=== PATIENT | female | born 1975 | race Caucasian/White ===

== ENCOUNTER → 2017-08-29 | Outpatient (CLI) | payer OTHER ==
--- NOTE | 2017-08-30 08:54 | RADIOLOGY IMAGING REPORT ---
FACILITY: [facility] PATIENT NAME: HUMBERTO NEAL : [id number] MR: [id number] V: [id number] EXAM DATE: ORDERING PHYSICIAN: HAIM HENRY TECHNOLOGIST: Rhiannon Hamm PROCEDURE:BILATERAL DIGITAL SCREENING MAMMOGRAM WITH CAD ASSISTED INTERPRETATION & 3D TOMOSYNTHESIS COMPARISON:None. INDICATIONS:baseline FINDINGS: Dense heterogeneous fibroglandular tissue is seen throughout the breasts. There is no evidence of malignant appearing mass, malignant appearing calcifications or other secondary sign of malignancy in either breast. DIAGNOSTIC CATEGORY 2--BENIGN FINDING. RECOMMENDATIONS: ROUTINE MAMMOGRAM AND CLINICAL EVALUATION. IMPRESSION: BIRADS 2: Benign finding No significant abnormality is seen Dictated by: Tosin Rose M.D. on 08/29/2017 at 16:44 Transcribed by: ILIR on 08/30/2017 at 8:38 Approved by: Tosin Rose M.D. on 08/30/2017 at 8:53 [facility]
== END ==
LOC: MAMO 01:03
PROVIDERS: ATTEND Nurse Practitioner Psychiatric/Mental Health
DX: Z12.31 Encounter for screening mammogram for malignant neoplasm of breast (principal)
CPT/HCPCS: 77063; 77067

== ENCOUNTER → 2017-09-13 | Outpatient (CLI) | payer OTHER ==
--- NOTE | 2017-09-13 19:39 | RADIOLOGY IMAGING REPORT ---
FACILITY: [facility] PATIENT NAME: Belkis Vallejo : 1975 MR: [id number] V: [id number] EXAM DATE: ORDERING PHYSICIAN: TOMMY WADSWORTH TECHNOLOGIST: Location: [facility] Patient: Belkis Vallejo : 1975 Visit/Account:[id number] Date of Sevice: 09/13/2017 PELVIC HISTORY: Abnormal CT. Right ovarian cyst. TECHNIQUE: Transvaginal ultrasound pelvis. Transabdominal imaging also obtained COMPARISON: CT abdomen/pelvis 05/24/2017 FINDINGS: Uterus: 8.0 x 4.9 x 6.0 cm. Myometrium: Probable 2.2 x 2.2 x 2.1 cm fundal fibroid.. Endometrium: Unremarkable; double thickness 12 mm. Cervix: Grossly negative. Right ovary: 3.5 x 2.4 x 2.5 cm. No concerning masses. Normal arterial and venous flow. Small amount of adjacent free fluid. Left ovary: 3.5 x 2.4 x 3.2 cm. No concerning masses. Normal arterial and venous flow. Free pelvic fluid: None. Other findings: None significant IMPRESSION: 1. Probable 2.2 cm fundal fibroid. 2. Normal endometrium. 3. Normal ovaries. 4. Small amount of free fluid adjacent to the right ovary, likely physiologic. Report Dictated By: Alex Goodman MD at 09/13/2017 7:30 PM Report E-Signed By: Alex Goodman MD at 09/13/2017 7:35 PM WSN:[id number]
--- NOTE | 2017-09-13 19:42 | RADIOLOGY IMAGING REPORT ---
FACILITY: [facility] PATIENT NAME: Belkis Vallejo : 1975 MR: [id number] V: [id number] EXAM DATE: ORDERING PHYSICIAN: TOMMY WADSWORTH TECHNOLOGIST: Location: [facility] Patient: Belkis Vallejo : 1975 Visit/Account:[id number] Date of Sevice: 09/13/2017 ABDOMEN COMPLETE HISTORY: Evaluate pancreatic cystic lesion on recent CT COMPARISON: CT abdomen/pelvis 05/24/2017. CT chest 09/13/2017 FINDINGS: Gallbladder: Negative Bile ducts: There is no biliary ductal dilation with the CBD measuring 3-4 mm. Liver: Negative. Pancreas: 3.5 x 4.0 x 3.3 cm cystic lesion at the pancreatic tail Spleen: Negative. Kidneys: Negative. Upper abdominal aorta and IVC: Patent. Ascites: None visualized. Other findings: Fluid at the right lung base. IMPRESSION: 1. There is a 3.5 x 4.0 x 3.3 cm cystic lesion at the pancreatic tail. This could represent pseudocys t or cystic neoplasm. Recommend pancreas MRI with and without contrast for further evaluation. 2. Fluid at the right lung base discussed on recent CT chest examination. This could represent unusua l loculated pleural fluid, lymphangioma or pseudocyst. Report Dictated By: Alex Goodman MD at 09/13/2017 7:35 PM Report E-Signed By: Alex Goodman MD at 09/13/2017 7:39 PM WSN:[id number]
== END ==
LOC: US 02:58
PROVIDERS: ATTEND Obstetrics & Gynecology
DX: K86.2 Cyst of pancreas (principal); R91.8 Other nonspecific abnormal finding of lung field
CPT/HCPCS: 76700; 76856

== ENCOUNTER → 2017-09-13 | Outpatient (CLI) | payer OTHER ==
--- NOTE | 2017-09-13 16:45 | RADIOLOGY IMAGING REPORT ---
FACILITY: [facility] PATIENT NAME: Belkis Vallejo : 1975 MR: [id number] V: [id number] EXAM DATE: ORDERING PHYSICIAN: DEREJE CULP TECHNOLOGIST: Location: [facility] Patient: Belkis Vallejo : 1975 Visit/Account:[id number] Date of Sevice: 09/13/2017 CHEST W/O CONTRAST HISTORY: Pleural effusion TECHNIQUE: CT imaging was obtained through the chest without intravenous contrast. One of the [employer] dose optimization techniques was utilized in the performance of this exam: automated exposure co ntrol; adjustment of the mA and/or kv according to patient size; or use of iterative reconstruction t echnique. Specific details can be referenced in the facility's radiology CT exam operational policy. CONTRAST: None COMPARISON: CT abdomen/pelvis 05/24/2017 FINDINGS: CHEST: Lower neck: Negative. Vessels: Negative Heart and pericardium: Negative. Mediastinum/hilum/lymph nodes: Negative. Lungs/pleura: Stable fluid density lesion posteriorly at the right lower lobe which tracks along the diaphragm anteriorly. No consolidation. No concerning pulmonary nodule. No central endobronchial les ion or bronchiectasis. Upper abdomen: Stable cystic lesion with punctate calcifications within the tail the pancreas measuri ng 3.5 x 3.7 cm. Bones/soft tissues: Negative. IMPRESSION: 1. Stable fluid density lesion posteriorly at the right lower lobe which tracks along the anterior di aphragm to the vena cava. Orientation is unusual for loculated pleural fluid. Pseudocyst or lymphangi ebony within the differential. 2. Stable 3.5 x 3.7 cm cystic lesion within the pancreatic tail with small calcifications. Recommend MRI for further evaluation with without contrast (pancreatic mass protocol).. Report Dictated By: Alex Goodman MD at 09/13/2017 4:18 PM Report E-Signed By: Alex Goodman MD at 09/13/2017 4:41 PM WSN:[id number]
== END ==
LOC: CT 02:53
PROVIDERS: ATTEND Internal Medicine
DX: K86.2 Cyst of pancreas (principal); R91.8 Other nonspecific abnormal finding of lung field
CPT/HCPCS: 71250

== ENCOUNTER → 2017-10-23 | Outpatient (CLI) | payer OTHER ==
--- NOTE | 2017-10-24 11:46 | RADIOLOGY IMAGING REPORT ---
FACILITY: [facility] PATIENT NAME: HUMBERTO NEAL : [id number] MR: [id number] V: [id number] EXAM DATE: ORDERING PHYSICIAN: TOMMY WADSWORTH TECHNOLOGIST: Benitez Coates PROCEDURE:US RIGHT BREAST COMPLETE COMPARISON:None. INDICATIONS:new lump felt on breast exam in the 7 o'clock position on the Right breast. FINDINGS: The right breast was imaged in the 5-9 o'clock positions revealing a tiny duct in the 8 o'clock position measuring 2.7 x 2.6 x 1.5mm. No sonographic abnormality identified to account for patient's palpable findings. DIAGNOSTIC CATEGORY 3--PROBABLY BENIGN FINDING. RECOMMENDATIONS: SIX MONTH FOLLOW-UP DIAGNOSTIC MAMMOGRAM: RIGHT BREAST. IMPRESSION: BIRADS 3: Probably benign finding A 6 month follow-up Right mammogram is recommended as discussed in Today's Right mammogram report. Dictated by: Tosin Rose M.D. on 10/23/2017 at 16:00 Transcribed by: ILIR on 10/24/2017 at 8:34 Approved by: Tosin Rose M.D. on 10/24/2017 at 11:46 [facility]
--- NOTE | 2017-10-24 11:47 | RADIOLOGY IMAGING REPORT ---
FACILITY: [facility] [place] PATIENT NAME: HUMBERTO NEAL : [id number] MR: [id number] V: [id number] EXAM DATE: [id number] ORDERING PHYSICIAN: TOMMY WADSWORTH TECHNOLOGIST: Loren Hermosillo PROCEDURE:RIGHT DIGITAL DIAGNOSTIC MAMMOGRAM WITH CAD ASSISTED INTERPRETATION & 3D TOMOSYNTHESIS COMPARISON:Prior mammogram 08/29/17. INDICATIONS:RIGHT BREAST LUMP 7 O'CLOCK POSITION FINDINGS: Dense heterogeneous fibroglandular tissue is seen throughout the breasts. Just lateral to the mid nipple line on the Right CC view in Zone 3 there is a focal area of increased density that persists on the Spot compression view. This appears to partially dissipate on the mediolateral rolled Right CC views. No abnormalities identified in the full field mediolateral view of the Right breast or the Right MLO views. This may simply represent a focal element of fibroglandular tissue. Although a 6 month follow-up Right breast mammogram is recommended unless clinical finding warrant more immediate attention. DIAGNOSTIC CATEGORY 3--PROBABLY BENIGN FINDING. RECOMMENDATIONS: SIX MONTH FOLLOW-UP DIAGNOSTIC MAMMOGRAM: RIGHT BREAST. IMPRESSION: BIRADS 3: Probably benign finding A 6 month follow-up Right mammogram is recommended as described. Dictated by: Tosin Rose M.D. on 10/23/2017 at 16:03 Transcribed by: ILIR on 10/24/2017 at 11:32 Approved by: Tosin Rose M.D. on 10/24/2017 at 11:46 [facility]
== END ==
LOC: US 00:42
PROVIDERS: ATTEND Obstetrics & Gynecology
DX: N63.13 Unspecified lump in the right breast, lower outer quadrant (principal)
CPT/HCPCS: 77061; 77065